=== PATIENT | male | born 1980 ===

== ENCOUNTER 2018-07-26 00:40 | Inpatient (IN) | payer OTHER ==
[2018-07-26] MEDS ORDERED: Sodium Chloride 0.9% 100 ML ONE (01:10)
[2018-07-26] MEDS ORDERED: Piperacillin/Tazobactam 3.375 GM VIAL ONE (01:10)
[2018-07-26 01:39] LABS: Eosinophils 1 % (0-10); Hemoglobin 14.1 g/dL (14.0-18.0); Lymphocytes 22 % (21-51); MDiff Complete? YES; Mean Corpuscular HGB CONC 36.3 g/dL (32.0-36.0); Mean Corpuscular Hemoglobin 32.9 pg (27.0-31.0); Mean Corpuscular Volume 90.6 fL (78.0-98.0); Mean Platelet Volume 9.6 fL (7.4-10.4); Monocytes 5 % (0-10); Neutrophil 70 % (42-75); Platelet Count 189 thou/uL (130-400); Reactive Lymphocytes 2 % (0-10); Red Blood Cell (RBC) Count 4.27 mill/uL (4.70-6.10); White Blood Cell (WBC) Count 13.8 thou/uL (4.8-10.8)
[2018-07-26 01:43] LABS: ALT (SGPT) 22 U/L (8-55); AST (SGOT) 9 U/L (5-34); Albumin 3.8 g/dL (3.5-5.0); Alkaline Phosphatase 101 U/L (40-150); Anion Gap 14 mmol/L (10-20); BUN (Urea Nitrogen) 11 mg/dL (8.9-20.6); Bilirubin, Total 0.3 mg/dL (0.2-1.2); Calc. Creatinine Clearance 0 mL/min (70-130); Calcium 9.6 mg/dL (7.8-10.44); Carbon Dioxide 23 mmol/L (22-29); Chloride 101 mmol/L (98-107); Estimated GFR-MDRD 84; Globulin 3.4 g/dL (2.4-3.5); Glucose 337 mg/dL (70-105); Potassium 3.9 mmol/L (3.5-5.1); Protein, Total 7.2 g/dL (6.0-8.3); Sodium 134 mmol/L (136-145)
[2018-07-26] MEDS ORDERED: Acetaminophen 325 MG TAB ONE (03:13)
[2018-07-26 05:10] VITALS: BMI 39.7
[2018-07-26] MEDS ORDERED: Sodium Chloride 0.9% 1,000 ML IV SCH (06:06)
[2018-07-26] MEDS ORDERED: Ondansetron ODT 4 MG TAB SL PRN (06:06)
[2018-07-26] MEDS ORDERED: Acetaminophen 325 MG TAB PO PRN ×2 (06:06→08:13)
[2018-07-26] MEDS ORDERED: Ondansetron PF 4 MG/2 ML Vial IVP PRN (06:06)
--- NOTE | 2018-07-26 07:49 | RAD ---
CHEST 2 VIEWS: Date: 07/26/18 INDICATION: History of chest pain. COMPARISON: None. FINDINGS: Lungs are clear. Heart size is normal. No acute osseous abnormality is evident. IMPRESSION: No acute cardiopulmonary abnormality. POS: BH
[2018-07-26] MEDS ORDERED: Zolpidem Tartrate 5 MG TAB PO PRN (08:13)
[2018-07-26] MEDS ORDERED: Dextrose 5% in Water 1,000 ML IV PRN (08:13)
[2018-07-26] MEDS ORDERED: Ondansetron ODT 4 MG TAB PO PRN (08:13)
[2018-07-26] MEDS ORDERED: Dextrose 50% Abboject 50 ML SYRINGE SLOW IVP PRN (08:13)
[2018-07-26 08:42] LABS: Hemoglobin A1c 8.8 % (4.0-6.0)
[2018-07-26] MEDS ORDERED: Vancomycin HCl 1 GM in Premix Bag 1 BAG IVPB SCH (08:45)
[2018-07-26] MEDS ORDERED: Vancomycin HCl 1 GM in Sodium Chloride 0.9% 250 ML 250 ML IVPB SCH (09:00)
--- NOTE | 2018-07-26 09:12 | HP ---
PRIMARY CARE PROVIDER: Dr. Jose Stauffer. HISTORY OF PRESENT ILLNESS: The patient was referred to [facility] by [facility]. The patient has had a sebaceous cyst on his back at least 5 years. It is over the right scapula. Apparently, his tried to pop it 5 days ago, got a little clear liquid out, then it got larger, red. On 07/23, went to [facility]. It was incised. He states they got a lot of waxy stuff out, was put on antibiotics, told if it got worse, to come back on 07/25. He went back. Again, it was incised, drained, and got more stuff out of it and told if he got worse to come to the hospital. The redness has spread around to involve up his right pectoral area. He has pain down his right side. He has had no fever or chills, but he did have a sweat with it last night. PAST MEDICAL HISTORY: Hypertension, on lisinopril in the past, nothing at present. No history of diabetes. ALLERGIES: NONE. PAST SURGICAL HISTORY: None. FAMILY HISTORY: Grandparents had diabetes. None in his parents. SOCIAL HISTORY: . , next of kin for decision making. Smokes 1 pack per day. Has 2 beers a week. REVIEW OF SYSTEMS: GENERAL: He has had a loss of energy about once a month arising, he gets dizzy and has visual change. EYES: No frequent blurring or diplopia. EARS, NOSE, AND THROAT: He has had dry mouth recently. No trouble swallowing. No nose bleed. No ear pain or drainage. CARDIAC: No chest pain, orthopnea, or paroxysmal nocturnal dyspnea. RESPIRATION: No cough, wheezing, or asthma. GASTROINTESTINAL: No nausea, vomiting, abdominal pain, diarrhea, or constipation. GENITOURINARY: He has urinary frequency and nocturia, but no pain or bleeding. MUSCULOSKELETAL: No pain or swelling in his arms or legs. NEUROLOGICAL: No strokes, seizures, or focal weakness. PSYCHIATRIC: No anxiety or depression. SKIN: He has aforementioned redness and lesion over his right scapula, but now with redness around encompassing his right pectoral area. HEME/LYMPH: No tender or swollen lymph nodes in axilla and inguinal cervical area. PHYSICAL EXAMINATION: GENERAL: He is alert, pleasant, cooperative gentleman, who states he is not in any distress whatsoever. VITAL SIGNS: Temperature 98.3, pulse is 96, respirations 20, and blood pressure 130/83. HEAD, EYES, EARS, NOSE, AND THROAT: Revealed pupils are equal, round, and reactive to light. Extraocular movements are intact. Sclerae are white. Tympanic membranes are clear. Nose is clear. Oral mucous membranes are damp. His dental hygiene is good. CHEST: Clear to auscultation and percussion. HEART: Regular rate and rhythm. First and second heart sounds are clear. No murmurs or gallops. ABDOMEN: Soft. Bowel sounds are normal. There is no hepatosplenomegaly. No mass. No rebound. No bruits. EXTREMITIES: Reveal no cyanosis, clubbing, or edema. PULSES: Carotid, radial, femoral, and dorsalis pedis pulses intact. SKIN: He has a bandaged area over his right scapula. He has erythema extending from this area around to that right pectoral area anteriorly. Well demarcated, warm and dry, otherwise. HEME/LYMPH: No tender or swollen lymph nodes in axilla or inguinal cervical area. NEUROLOGIC: Cranial nerves II through XII are intact. Moves all extremities. Sensation intact. IMAGING DATA: No EKG is available. We will order one if seems appropriate. Chest x-ray; no cardiomegaly, CHF, or infiltrate. The chest x-ray is under-penetrated, reviewed by me. LABORATORY DATA: Elevated white count at 13.8 with no left shift, platelet count 189,000, and hemoglobin 14.1. Comprehensive metabolic profile; sodium is 134, blood sugars 337, otherwise normal. Lactic acid is normal. ADMITTING DIAGNOSES: 1. Abscess cellulitis of the right posterior chest and right anterior chest. 2. Diabetes mellitus, type 2. 3. Hypertension. 4. Tobacco abuse. PLAN: Antibiotics have been started with Rocephin and vancomycin. Infectious Disease has been called. Hemoglobin A1c has been ordered. Accu-Cheks sliding scale have been ordered. Wound care has been requested. Job ID: [id number]
[2018-07-26] MEDS: Enoxaparin Sodium 40 MG/0.4 ML SYRINGE SC SCH (09:31)
[2018-07-26] MEDS: cefTRIAXone\\ROCEPHIN 2 GM in Sodium Chloride 0.9% 100 ML IVPB SCH (09:44)
[2018-07-26] MEDS ORDERED: Piperacillin/Tazobactam 3.375 GM in Sodium Chloride 0.9% 100 ML IVPB SCH (10:00)
[2018-07-26] MEDS: Insulin Regular 300 UNITS/3 ML VIAL SC PRN ×2 (17:20→21:31)
--- NOTE | 2018-07-26 22:01 | CON ---
DATE OF CONSULTATION: 07/26/2018 REASON FOR CONSULTATION: Abscess with cellulitis in the right subscapular region. HISTORY OF PRESENT ILLNESS: A 38-year-old, with history of obesity and newly identified type 2 diabetes mellitus, who lives in town and is , developed an inflammatory process following an attempt by his to drain a sebaceous cyst. He eventually ended up in one of the free-standing ERs in the area and after I and D, the inflammatory process worsened and he was admitted to the hospital. He is feeling better after initial treatment. He denies headaches. No visual symptoms, sore throat, odynophagia, or dysphagia. No dyspnea or chest pain. No abdominal pain or diarrhea. Urinary frequency was noted, but no dysuria. No hematuria. No joint symptoms. PAST MEDICAL HISTORY: Hypertension, obesity, and undiagnosed type 2 diabetes. ALLERGIES: NONE. PAST SURGICAL HISTORY: None. FAMILY HISTORY: Type 2 diabetes. SOCIAL HISTORY: . He works in the area, still smoking, and drinks every other day. MEDICATIONS: Current medication list; 1. Tylenol. 2. Ceftriaxone. 3. Vancomycin. 4. Ondansetron. OBJECTIVE: VITAL SIGNS: T-max 98, blood pressure 140/90, pulse 95, respirations 18, O2 saturation 99%. SKIN: Shows the back abscess cavity in the right subscapular region and wrapping around the right chest towards the anterior abdomen, an area of erythema with some induration in the more posterior segments of this area. This is moderately tender. There is an alternate area of erythema below this one, wrapping around the right flank region. No lymphadenopathy. HEENT: Ocular movements conjugate. Sclerae white. Pupils are equal. Oral cavity normal. Teeth in good shape. NECK: Supple. No jugular vein distention. LUNGS: Symmetric. Clear breath sounds. HEART: S1 and S2. Regular rate. ABDOMEN: Soft, not distended or tender. It is kind of globose and lot of panniculus there from his obesity. GENITOURINARY: No bladder distention. EXTREMITIES: No joint inflammatory activity. NEUROLOGIC: Nonfocal. Pulses 1+ in dorsalis pedis. Cognitive function appears to be intact. LABORATORY DATA: White cell count was 13.8, hemoglobin 14, platelets 189 with a normal differential. Creatinine 1.0. Glucose was 337, hemoglobin A1c 8.8, AST 9, ALT 22, and albumin 3.8. Blood cultures are pending. Cultures from the outside emergency room are pending. ASSESSMENT: Obesity, undiagnosed type 2 diabetes, and inflammatory changes in a previous sebaceous cyst in the right back area, which failed I and D resulting in admission. DISCUSSION: The patient most likely has Staphylococcus aureus abscess, superimposed on a previous sebaceous cyst, has developed cellulitis with phlegmon around that area, may have been bacteremic as well particularly in view of his diabetes. Other sites of involvement including spine, lungs, endocardium, other bone and joint sites are not apparent at this time, but we will have to continue monitoring. I have submitted a swab sample for cultures from the base of the abscess; hopefully, we will retrieve an organism for targeting. Continue current medications for the time being. Once we have final results on blood cultures, then we would be able to transition to oral therapy according to clinical response and results of cultures. We will contact [facility] for results of cultures hoping that the cultures were submitted. Job ID: [id number] MTDD
[2018-07-27 04:44] LABS: #Basophils 0.1 thou/uL (0.0-0.2); #Eosinphils 0.2 thou/uL (0.0-0.7); #Lymphocytes 2.9 thou/uL (1.20-3.40); #Monocytes 0.9 thou/uL (0.11-0.59); #Neutrophils 9.2 thou/uL (1.40-6.50); %Basophils 0.6 % (0.0-1.0); %Eosinophils 1.8 % (0.0-10.0); %Lymphocytes 21.7 % (21.0-51.0); %Monocytes 6.6 % (0.0-10.0); %Neutrophils 69.3 % (42.0-75.0); Hemoglobin 14.2 g/dL (14.0-18.0); Mean Corpuscular Hemoglobin 32.2 pg (27.0-31.0); Mean Corpuscular Volume 94.7 fL (78.0-98.0); Platelet Count 211 thou/uL (130-400); RBC Distribution Width 12.1 % (11.5-14.5); White Blood Cell (WBC) Count 13.2 thou/uL (4.8-10.8)
[2018-07-27 05:01] LABS: Anion Gap 12 mmol/L (10-20); BUN (Urea Nitrogen) 9 mg/dL (8.9-20.6); Calc. Creatinine Clearance 241 mL/min (70-130); Calcium 9.3 mg/dL (7.8-10.44); Carbon Dioxide 24 mmol/L (22-29); Chloride 102 mmol/L (98-107); Estimated GFR-MDRD Greater than 90; Glucose 197 mg/dL (70-105); Potassium 4.1 mmol/L (3.5-5.1); Sodium 134 mmol/L (136-145)
[2018-07-27] MEDS: Insulin Regular 300 UNITS/3 ML VIAL SC PRN ×3 (06:02→16:46)
[2018-07-27] MEDS: cefTRIAXone\\ROCEPHIN 2 GM in Sodium Chloride 0.9% 100 ML IVPB SCH (07:50)
[2018-07-27] MEDS: Enoxaparin Sodium 40 MG/0.4 ML SYRINGE SC SCH (08:00)
--- NOTE | 2018-07-27 10:50 | PDOC.PN ---
- Subjective Encounter Start Date: 07/27/18 Encounter Start Time: 10:48 Subjective: no fever or chills, but having sweats - Objective Resuscitation Status - Order Detail: 07/26/18 08:11 Resuscitation Status Routine Resuscitation Status: FULL: Full Resuscitation MAR Reviewed: Yes Vital Signs & Weight: Vital Signs (12 hours) Temp Pulse Resp BP Pulse Ox 07/27/18 07:54 97 07/27/18 07:21 98.9 F 89 18 118/75 97 07/27/18 04:00 98.2 F 91 16 134/88 98 07/27/18 00:00 99.1 F 92 16 112/77 97 Weight Admit Weight 293 lb Weight 293 lb I&O: 07/26/18 07/27/18 07/28/18 06:59 06:59 06:59 Intake Total 3450 240 Balance 3450 240 Result Diagrams: 07/27/18 03:58 07/27/18 03:58 Additional Labs: Accuchecks 07/27/18 07/27/18 07/26/18 09:22 05:58 21:03 POC Glucose 176 H 205 H 301 H 07/26/18 07/26/18 07/26/18 17:47 16:09 10:51 POC Glucose 225 H 232 H 309 H Phys Exam - Physical Examination Neck: no JVD Respiratory: clear to auscultation bilateral Cardiovascular: RRR, no significant murmur Gastrointestinal: soft, non-tender Musculoskeletal: no edema Deviation from normal: erythema post R chest extending across to sternum on R and down into R flan Dx/Plan (1) Cellulitis and abscess of trunk Code(s): L03.319 - CELLULITIS OF TRUNK, UNSPECIFIED; L02.219 - CUTANEOUS ABSCESS OF TRUNK, UNSPECIFIED Status: Acute (2) DM type 2 (diabetes mellitus, type 2) Status: Acute Qualifiers: Diabetes mellitus regional intermodal truck driver insulin use: without regional intermodal truck driver use Diabetes mellitus complication status: without complication Qualified Code(s): E11.9 - Type 2 diabetes mellitus without complications Comment: new Dx- HgA1c 8.8 (3) HTN (hypertension) Code(s): I10 - ESSENTIAL (PRIMARY) HYPERTENSION Status: Acute (4) Tobacco abuse Code(s): Z72.0 - TOBACCO USE Status: Acute - Plan cont iv antibx -: cont accu/ss/ start metformin -: diabetic diet * .
[2018-07-27 15:36] VITALS: BP 142/96; TEMP 98.4
[2018-07-27] MEDS ORDERED: metFORMIN 850 MG TAB PO SCH (17:00)
--- NOTE | 2018-07-27 17:02 | PRG ---
DATE OF SERVICE: 07/27/2018 SUBJECTIVE: Feeling better. No more pain in the areas of involvement. No respiratory symptoms or abdominal pain. No diarrhea. OBJECTIVE: Vital signs are normal. The area of involvement shows resolution of the areas of erythema, still a little bit of induration in the lateral aspect of the chest. LABORATORY DATA: White cell count 13.2, hemoglobin 14, platelets 211. Creatinine 0.78. Microbiology with pending cultures from the back swab. ASSESSMENT AND DISCUSSION: Type-2 diabetes, newly diagnosed; obesity; abscess, status post I and D, right subscapular region with cellulitis. Blood cultures remain negative and consider transition to oral Zyvox for discharge planning. Follow up in the clinic. Blood cultures need to be followed up until final results. Evidently, if they return positive, he will need IV therapy for probably at least 2 weeks. Job ID: [id number]
--- NOTE | 2018-07-27 17:21 | DIS ---
DATE OF ADMISSION: 07/26/2018 DATE OF DISCHARGE: 07/27/2018 TRANSFER OF CARE DISPOSITION: Discharged home. PRIMARY CARE PHYSICIAN: Dr. Jose Stauffer. DIAGNOSES: Abscess; cellulitis of upper right trunk; hypertension; diabetes mellitus type 2, new diagnosis; tobacco abuse. DISCHARGE MEDICINES: 1. Zyvox 600 mg p.o. b.i.d. x10 days. 2. Metformin 850 mg p.o. b.i.d. DIET: Diabetic. PENDING AT THE TIME OF DISCHARGE: Growth of wound culture. CONSULTATION: Dr. Keven Suggs. PROCEDURES: None. HOSPITAL COURSE: The patient was referred to [facility] by [facility]. He has had a sebaceous cyst on his right posterior chest for 5 years. Apparently, his tried to "pop it" 5 days ago, went to [facility] approximately 07/23. It was incised. He states they got a lot of waxy stuff out, put him on oral antibiotics, told him if it got worse, to come back. He went back. it was incised, drained, and got more stuff out of it and told if he got worse to come to the hospital. The redness on his right posterior chest has spread around to his right pectoral area. No fever or chills, but he did have a sweat. His white count was 13.8 with no left shift. Platelet count 189,000, hemoglobin 14.1. Blood sugar was 337. Hemoglobin A1c was obtained, which was 8.8. The patient was put on diabetic diet, placed on 850 mg of metformin a day. He was initially put on Rocephin and vancomycin IV. Dr. Suggs today stated he could go home on Zyvox 600 mg twice a day for 10 days. He was given a prescription for Zyvox and a prescription for metformin. He was asked to see his PCP in 7 days about the diabetes, to follow up with Dr. Suggs regarding the cellulitis, abscess of his chest. No procedures were done as I mentioned before. Job ID: [id number]
== END 2018-07-27 19:05 | disposition home or self-care (01) | DRG 603 ==
LOC: SCSER 00:40 → SURG A 05:02
PROVIDERS: ADMIT Internal Medicine; ATTEND Internal Medicine
DX: L03.313 Cellulitis of chest wall (principal); I10 Essential (primary) hypertension; F17.210 Nicotine dependence, cigarettes, uncomplicated; E11.22 Type 2 diabetes mellitus with diabetic chronic kidney disease; E66.9 Obesity, unspecified; Z79.899 Other long term (current) drug therapy; Z68.39 Body mass index [BMI] 39.0-39.9, adult
CPT/HCPCS: 36415; 36416; 71046; 80048; 80053; 83036; 83605; 85025; 87040; 87070; 87205; 96365; 96367; J0696; J1650; J1815; J2543; J3370; J3490; J7050

== ENCOUNTER 2018-10-25 19:18 | Emergency (ER) | payer OTHER ==
[2018-10-25 19:56] LABS: #Basophils 0.2 thou/uL (0.0-0.2); #Eosinphils 0.1 thou/uL (0.0-0.7); #Monocytes 0.6 thou/uL (0.11-0.59); #Neutrophils 8.7 thou/uL (1.40-6.50); %Basophils 1.2 % (0.0-1.0); %Eosinophils 0.8 % (0.0-10.0); %Monocytes 5.1 % (0.0-10.0); Hemoglobin 15.6 g/dL (14.0-18.0); Mean Corpuscular HGB CONC 34.7 g/dL (32.0-36.0); Mean Corpuscular Hemoglobin 31.6 pg (27.0-31.0); Mean Corpuscular Volume 91.2 fL (78.0-98.0); Mean Platelet Volume 8.6 fL (7.4-10.4); Platelet Count 170 thou/uL (130-400); RBC Distribution Width 12.2 % (11.5-14.5); Red Blood Cell (RBC) Count 4.93 mill/uL (4.70-6.10); White Blood Cell (WBC) Count 12.6 thou/uL (4.8-10.8)
[2018-10-25 20:10] LABS: ALT (SGPT) 26 U/L (8-55); AST (SGOT) 16 U/L (5-34); Albumin 4.2 g/dL (3.5-5.0); Alkaline Phosphatase 93 U/L (40-150); Anion Gap 14 mmol/L (10-20); BUN (Urea Nitrogen) 14 mg/dL (8.9-20.6); Bilirubin, Total 0.3 mg/dL (0.2-1.2); Calc. Creatinine Clearance 0 mL/min (70-130); Calcium 9.5 mg/dL (7.8-10.44); Carbon Dioxide 25 mmol/L (22-29); Chloride 105 mmol/L (98-107); Estimated GFR-MDRD 71; Globulin 3.1 g/dL (2.4-3.5); Glucose 132 mg/dL (70-105); Lipase 35 U/L (8-78); Protein, Total 7.3 g/dL (6.0-8.3); Sodium 140 mmol/L (136-145)
[2018-10-25 21:50] LABS: Bilirubin Negative (Negative); Blood, Urine Negative (Negative); Clarity Clear (Clear); Glucose, Urine (Dipstick) Negative (Negative); Leukocyte Negative (Negative); Nitrite Negative (Negative); Protein, Urine (Dipstick) Negative (Neg-Trace); Urobilinogen 0.2 mg/dL (Less than 2)
[2018-10-25] MEDS ORDERED: diphenhydrAMINE 50 MG/ML VIAL ONE (22:21)
--- NOTE | 2018-10-25 22:32 | CT ---
CT abdomen and pelvis with IV and oral contrast HISTORY: Abdominal pain. Worsening at umbilical hernia. FINDINGS: No comparison. The lung bases are clear. Cortical and parapelvic cysts of the left kidney. 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 No evidence of bowel obstruction. A fat-containing umbilical hernia measures up to 4.9 cm. There is subtle stranding within the fat at the right side of the hernia. No bowel extends into the hernia. No fluid collections. Urinary bladder is decompressed. Appendix not inflamed. IMPRESSION: Mild inflammatory stranding within the fat of a 4.9 cm umbilical hernia. No bowel involve ment.
== END 2018-10-25 22:50 | disposition home or self-care (01) ==
LOC: SCSER 19:18
DX: L03.316 Cellulitis of umbilicus (principal); F17.210 Nicotine dependence, cigarettes, uncomplicated; Z79.84 Long term (current) use of oral hypoglycemic drugs
CPT/HCPCS: 36416; 74177; 80053; 81003; 83605; 83690; 85025; 96365; 96375; J1200; J3370